=== PATIENT | male | born 1995 | race Two or more races ===

== ENCOUNTER 2019-03-22 06:01 | Emergency (ER) | payer MEDICAID, OTHER ==
[~2019-03-22] VITALS: Ht 177.8 cm; Wt 56.7 kg
[2019-03-22 06:01] VITALS: BP 139/79
== END 2019-03-22 06:48 | disposition home or self-care (01) ==
LOC: ER 06:02
DX: T20.22XA Burn of second degree of lip(s), initial encounter (principal); M25.532 Pain in left wrist; F15.10 Other stimulant abuse, uncomplicated; F20.9 Schizophrenia, unspecified; Z88.0 Allergy status to penicillin; Z88.1 Allergy status to other antibiotic agents; X08.8XXA Exposure to other specified smoke, fire and flames, initial encounter; Y93.89 Activity, other specified; Y92.89 Other specified places as the place of occurrence of the external cause; Y99.8 Other external cause status

== ENCOUNTER 2019-07-16 09:26 | Emergency (ER) | payer MEDICAID ==
[~2019-07-16] VITALS: Ht 177.8 cm; Wt 59.4 kg
--- NOTE | 2019-07-16 09:32 | NUR ---
BIBA [facility] 59 Homeless "Last took meth 12H ago now feeling weak. Also have hx of schizo and not taking meds", to ER bed 9, hooked to bp monitor and pox, changed to hosp gown, warm blanket provided, awaiting MD espinoza.
--- NOTE | 2019-07-16 10:07 | NUR ---
URINE SAMPLE COLLECTED AND SENT TO LAB
[2019-07-16 10:25] LABS: BASOPHILS # (AUTO) 0.1 /CMM (0.0-0.2); BASOPHILS % (AUTO) 0.9 % (0.0-2.0); EOSINOPHILS % (AUTO) 3.1 % (0.0-6.0); HEMATOCRIT 49 % (39-51); HEMOGLOBIN 17.1 g/dL (13.5-17.5); LYMPHOCYTES # (AUTO) 1.9 /CMM (0.8-4.8); LYMPHOCYTES % (AUTO) 20.9 % (20.0-44.0); MEAN CORPUSCULAR HGB CONC 35 g/dl (31.0-36.0); MEAN CORPUSCULAR VOLUME 86 fL (80-96); MONOCYTES # (AUTO) 0.9 /CMM (0.1-1.30); MONOCYTES % (AUTO) 9.7 % (2.0-12.0); NEUTROPHILS # (AUTO) 5.9 /CMM (1.8-8.9); NEUTROPHILS % (AUTO) 65.4 % (43.0-81.0); PLATELET COUNT (AUTO) 218 /CMM (150-450); RED BLOOD CELL COUNT(AUTO) 5.71 MIL/uL (4.5-6.0); WHITE BLOOD COUNT (AUTO) 9.1 K/uL (4.3-11.0)
[2019-07-16 10:38] LABS: ALANINE AMINOTRANSFERASE 70 U/L (12-78); ALBUMIN 4.6 g/dL (3.4-5.0); ALCOHOL, BLOOD < 3 mg/dL (0-0); ALKALINE PHOSPHATASE 85 U/L (46-116); ASPARTATE AMINOTRANSFERASE 70 U/L (15-37); BILIRUBIN,DIRECT 0.3 mg/dL (0.0-0.2); BILIRUBIN,TOTAL 1.2 mg/dL (0.2-1.0); CALCIUM, SERUM 9.3 mg/dL (8.5-10.1); CARBON DIOXIDE 30 mmol/L (21-32); CHLORIDE 95 mmol/L (98-107); CREATININE 1.1 mg/dL (0.6-1.3); GLUCOSE 95 mg/dL (74-106); POTASSIUM 4.1 mmol/L (3.5-5.1); SODIUM SERUM 134 mmol/L (136-145); TOTAL PROTEIN, SERUM 7.6 g/dL (6.4-8.2); UREA NITROGEN, BLOOD 33 mg/dL (7-18)
[2019-07-16 10:39] LABS: ACETAMINOPHEN < 2 ug/ml (10-30); SALICYLATE 1.1 mg/dL (2.8-20.0)
[2019-07-16 11:08] LABS: APPEARANCE,URINE Clear (CLEAR); BILIRUBIN,URINE SMALL (NEGATIVE); BLOOD, URINE Negative Ery/uL (NEGATIVE); COLOR,URINE Yellow (YELLOW); KETONES,URINE 40 (NEGATIVE); LEUKOCYTE ESTERASE ,URINE Negative (NEGATIVE); NITRITE, URINE Negative (NEGATIVE); PH,URINE 6.5 (5.0-8.0); PROTEIN,URINE Trace mg/dl (NEGATIVE); UGLUCOSE Negative (NEGATIVE); UROBILINOGEN,URINE 0.2 EU/dL (0.2)
[2019-07-16 11:26] LABS: BACTERIA,URINE Rare /HPF (None Seen); RBC,URINE NONE SEEN /HPF (0-2); SQUAMOUS EPITHELIAL CELL,UR Few /HPF (None Seen); WBC,URINE NONE SEEN /HPF (0-3)
--- NOTE | 2019-07-16 12:04 | NUR ---
COMFORTABLE IN BED ASLEEP, EASILY AROUSABLE BY VOICE. HOOKED TO MONITOR. VSS. SITTER AT BEDSIDE FOR SAFETY. KEPT WARM AND SAFE. WILL CONTINUE TO MONITOR ACCORDINGLY.
--- NOTE | 2019-07-16 12:51 | NUR ---
PROVIDED W LUNCH TRAY, TOLERATED PO WELL
--- NOTE | 2019-07-16 14:42 | NUR ---
PATIENT IN BED ASLEEP, EASILY AROUSABLE BY VOICE. HOOKED TO MONITOR, VSS. SITTER AT BEDSIDE FOR SAFETY. KEPT SAFE, WARM AND COMFORTABLE.
--- NOTE | 2019-07-16 17:05 | NUR ---
PATIENT IN BED ASLEEP, EASILY AROUSABLE BY VOICE. HOOKED TO MONITOR, VSS. SITTER AT BEDSIDE FOR SAFETY. KEPT SAFE, WARM AND COMFORTABLE.
--- NOTE | 2019-07-16 18:32 | NUR ---
PATIENT IN BED ASLEEP, EASILY AROUSABLE BY VOICE. HOOKED TO MONITOR, VSS. NOT IN DISTRESS. WILL CONTINUE TO MONITOR ACCORDINGLY.
--- NOTE | 2019-07-16 20:46 | NUR ---
SPOKE WITH DEDE FROM [facility], STILL NO BEDS AVAILABLE AT THIS TIME
--- NOTE | 2019-07-16 21:56 | NUR ---
SPOKE WITH JUNG FROM [facility], NO BEDS AVAILABLE AT THIS TIME
--- NOTE | 2019-07-16 21:57 | NUR ---
CALLED [facility], NO BEDS AVAILABLE AT THIS TIME
--- NOTE | 2019-07-16 22:06 | NUR ---
PT RESTING COMFORTABLY IN BED. VITAL SIGNS STABLE. SITTER AT BEDSIDE. WILL CONTINUE TO MONITOR
--- NOTE | 2019-07-17 01:15 | NUR ---
PT RESTING COMFORTABLY IN BED. VITAL SIGNS STABLE. SITTER AT BEDSIDE. WILL CONTINUE TO MONITOR
--- NOTE | 2019-07-17 04:02 | NUR ---
PATIENT IS SLEEPING. PATIENT IS EASILY AROUSABLE. BREATHING EVENLY AND UNLABORED ON ROOM AIR. VITAL SIGNS ARE STABLE. CONNECTED TO MONITOR. SITTER AT BEDSIDE.
--- NOTE | 2019-07-17 05:39 | NUR ---
PT RESTING COMFORTABLY IN BED. VITAL SIGNS STABLE. SITTER AT BEDSIDE. WILL CONTINUE TO MONITOR
--- NOTE | 2019-07-17 09:44 | NUR ---
CLOTH HAND followed up with Vivian at [facility] intake and was informed pt has been referred to [facility] management supervisor and clinicals are being reviewed at this time. Vivian to f/u with SW once pt is accepted. CLOTH HAND updated ED CRN Gener.
--- NOTE | 2019-07-17 12:51 | NUR ---
ICE PLATFORM SUPERVISOR was informed by Vivian at [facility] intake, pt has been accepted at [facility]. Call report after 3PM [phone]. Accepting Dr. Bhagat/Dr. Piper. updated JULIÁN Weinstein in ED.
--- NOTE | 2019-07-17 15:28 | NUR ---
PT GOING TO [facility]. ADMITTED BY DR CHAPIN, # FOR REPORT, EXT [phone]. P4
--- NOTE | 2019-07-17 15:36 | NUR ---
REPORT GIVEN TO MARCUS CLEMENTS OF [facility].
--- NOTE | 2019-07-17 15:44 | NUR ---
Kayden from [facility] for transport. will call back for eta
--- NOTE | 2019-07-17 15:53 | NUR ---
TRIP NUMBER FROM [facility] [id number].
--- NOTE | 2019-07-17 19:25 | NUR ---
REPORT GIVEN TO EMS FOR PT TRANSFER TO [facility].
[2019-07-17 19:32] VITALS: BP 127/77
== END 2019-07-17 19:33 ==
LOC: ER 09:32
DX: R45.851 Suicidal ideations (principal); F15.10 Other stimulant abuse, uncomplicated; Z88.0 Allergy status to penicillin; Z88.1 Allergy status to other antibiotic agents; Z59.0 Homelessness
CPT/HCPCS: 36415; 80048; 80076; 80305; 80307; 80329; 81001; 85025; 99285; G0480; 81000-TC